=== PATIENT | female | born 1990 | race African-American/Black ===

== ENCOUNTER 2017-11-24 17:41 | Emergency (ER) | END 2017-11-24 22:18 | disposition home or self-care (01) ==

== ENCOUNTER 2019-03-18 18:06 | Emergency (ER) | payer SELFPAY ==
[~2019-03-18] VITALS: Wt 91.3 kg
[~2019-03-18 18:06] MED LIST: BACL10TA PO; HYDR-4011 PO; IBUP-1542 PO; OMEP20CA16 PO; OMEP20CA9 PO
[2019-03-18 18:35] VITALS: BP 131/62; PULSE 80; RESP 18
== END 2019-03-18 20:15 | disposition left against medical advice (07) ==
LOC: FTE 18:06
DX: Z53.21 Procedure and treatment not carried out due to patient leaving prior to being seen by health care provider (principal)

== ENCOUNTER 2019-09-09 08:22 | Emergency (ER) | payer SELFPAY ==
[~2019-09-09] VITALS: Ht 170.2 cm; Wt 93.4 kg
[~2019-09-09 08:22] MED LIST changes: +CLIN300C10 PO; -OMEP20CA16 PO; +OMEP20CA17 PO
[2019-09-09 08:29] VITALS: BP 108/68; PULSE 66; RESP 18; Ht 170.2 cm; Wt 93.4 kg
== END 2019-09-09 09:54 | disposition home or self-care (01) ==
LOC: FTE 08:22
DX: L02.411 Cutaneous abscess of right axilla (principal); N39.0 Urinary tract infection, site not specified; F41.9 Anxiety disorder, unspecified
CPT/HCPCS: 81003; 81025; 99283